=== PATIENT | male | born 1975 | race Caucasian/White ===

== ENCOUNTER 2016-12-05 13:35 | Outpatient (CLI) | payer OTHER ==
[2016-12-05 13:51] LABS: BASOPHILS % 0.2 (0.0-1.5); EOSINOPHILS % 1.1 % (0.0-6.8); MEAN CORPUSCULAR HEMOGLOBIN 27.9 pg (28.0-34.0); MEAN CORPUSCULAR VOLUME 84.6 fl (80.0-100.0); MONOCYTES % 4.1 % (0.0-11.0); NEUTROPHILS # 9.3 # k/uL (1.4-7.7)
[2016-12-05 14:19] LABS: eGFR (African) > 60; eGFR (Non-African) > 60
--- NOTE | 2016-12-05 15:10 | Diagnostic Imaging Report ---
LULI SMITH [facility] [id number] [facility] [address] [id number] Report Submission Date: Dec 05, 2016 3:05:36 PM CDT Patient Study Name: IVY PARSONS Date: Dec 05, 2016 2:34:12 PM CDT Modality Type: CT\SR Gender: M Description: CT ABD & PELVIS W/ CON : 73 Institution: [facility] Physician: LULI SMITH Examination: CT Abdomen/pelvis History: Abdominal discomfort Comparison exams: None available Technique: CT Abdomen/pelvis with IV protocol. Findings: Liver demonstrates mild diffuse low attenuation. No central lesion. Spleen, adrenals, pancreas, kidneys and gallbladder are without gross irregularity. No abnormal enhancement. No gallstone. Kidneys and ureters are without suspicious calcification. No abnormal dilation of the ureters. Abdominal aorta without aneurysmal dilation. Cardiac silhouette not enlarged. No adjacent fluid. Bowel unopacified limiting evaluation. Dilation of the appendix to 1.2 cm with peripheral enhancement. Significant periappendiceal mesenteric inflammation. No evidence for adjacent focal fluid collection. No free air. Small appendicolith within the appendix. Remainder of visualized large and small bowel is without abnormal dilation. Stool within the large bowel limiting sensitivity. Osseous structures within normal limits. Lung bases with dependent atelectasis. Impression: Acute appendicitis. No evidence for rupture/perforation or abscess at this time. Surgical consultation recommended. Mildly fatty liver. Unable to contact ordering physician at number provided (number disconnected). Electronically signed on Dec 05, 2016 3:05:36 PM CDT by: Norm MENDOZA
== END 2016-12-05 13:36 ==
LOC: LAB 13:35
PROVIDERS: ATTEND Family Medicine
DX: R10.31 Right lower quadrant pain (principal)
CPT/HCPCS: 36415; 74177; 80053; 85025; Q9966